=== PATIENT | female | born 2000 | race Hispanic/Latino ===

== ENCOUNTER 2025-02-04 18:52 | Emergency (ER) | payer SELFPAY ==
[~2025-02-04] VITALS: Ht 162.6 cm; Wt 90.0 kg
[2025-02-04 19:16] VITALS: BP 135/95
[2025-02-04 19:41] LABS: URINE BILIRUBIN - DIPSTICK Negative (NEGATIVE); URINE BLOOD DIPSTICK Negative (NEGATIVE); URINE COLOR Yellow; URINE GLUCOSE - DIPSTICK Negative (NEGATIVE); URINE KETONE Negative (NEGATIVE); URINE LEUK ESTERASE Trace (NEGATIVE); URINE NITRITE - DIPSTICK Negative (Negative); URINE PROTEIN - DIPSTICK Negative (NEG-TRACE); URINE UROBILINOGEN - DIPSTICK 0.2 E.U./dL (0.2)
[2025-02-04] MEDS ORDERED: ACYCLOVIR 400 MG TAB PO ONE (20:00)
[2025-02-04] MEDS ORDERED: ACYCLOVIR400 MG PO (21:01)
[2025-02-04 21:10] VITALS: BP 135/95
== END 2025-02-04 21:10 | disposition home or self-care (01) | DRG 759 ==
LOC: ED 18:52
PROVIDERS: Family Medicine
DX: A60.04 Herpesviral vulvovaginitis (principal)